=== PATIENT | male | born 1980 | race Caucasian/White ===

== ENCOUNTER 2020-09-04 13:16 | Emergency (ER) | payer OTHER, SELFPAY ==
[2020-09-04 13:26] VITALS: BP 152/99; PULSE 114; RESP 18; TEMP 36.9; O2SAT 98
--- NOTE | 2020-09-04 14:09 | ED.EAR ---
HPI - Ear Problem General Chief complaint: Ear Stated complaint: left ear pain Source: RN notes reviewed History of Present Illness HPI Narrative: The homeless patient, previously mostly healthy, presents with left ear discomfort. Patient states he cleaned his ear several days ago with Q-tip after showering at his mother noticed some blood, which recurred today. No fever, decreased hearing acuity, vertigo/dizziness, discharge. Symptoms are mild, slightly improved and only worse with deep palpation Related Data Allergies Allergy/AdvReac Type Severity Reaction Status Date / Time No Known Allergies Allergy Verified 09/04/20 13:32 Review of Systems Review of Systems: Narrative: General/Constitutional: No weight loss,fever Eyes: N0: Redness,discharge Ears/Nose/Throat: No: Epistaxis,ear discharge Respiratory: Denies: Hemoptysis Gastrointestinal: No Vomiting, Bleeding-rectal Skin: No Lumps, eruption Neurologic: No Focal Weakness,Sz Hematologic: Denies: Petechiae/Purpura Psychiatric: No: Suicida ideationl All Other Systems: Reviewed and Negative PMFSH Social History Social History Gender identity (if verbalized by the patient): Male Comments At time of signature, agree with nursing past medical, surgical, social and family history. There is no relevant family history pertinent to the presenting complaint Exam Narrative: Exam Narrative: General Appearance: Well appearing, Well nourished, No distress EYE: PERRLA EOMI Ears: External ear normal, bilateral TMs benign, left EAC abraded, right auditory canal normal Nose: Normal nose, Nares clear Mouth/Throat: Normal appearing, Normal lips Neck: Supple, No adenopathy Respiratory: Airway patent, No respiratory distress Skin: Warm, Dry Neurological: A&O x3, CN II-X intact Psychiatric: Normal mood, Normal affect Course Vital Signs Vital signs: Vital Signs Temperature 98.5 F 09/04/20 13:26 Pulse Rate 114 H 09/04/20 13:26 Respiratory Rate 18 09/04/20 13:26 Blood Pressure 152/99 H 09/04/20 13:26 Pulse Oximetry 98 09/04/20 13:26 Temperature 98.5 F 09/04/20 13:26 Pulse Rate 114 H 09/04/20 13:26 Respiratory Rate 18 09/04/20 13:26 Blood Pressure 152/99 H 09/04/20 13:26 Pulse Oximetry 98 09/04/20 13:26 Medical Decision Making Vital Signs Vital Signs: Vital Signs Temperature 98.5 F 09/04/20 13:26 Pulse Rate 114 H 09/04/20 13:26 Respiratory Rate 18 09/04/20 13:26 Blood Pressure 152/99 H 09/04/20 13:26 Pulse Oximetry 98 09/04/20 13:26 Temperature 98.5 F 09/04/20 13:26 Pulse Rate 114 H 09/04/20 13:26 Respiratory Rate 18 09/04/20 13:26 Blood Pressure 152/99 H 09/04/20 13:26 Pulse Oximetry 98 09/04/20 13:26 Discharge Plan Discharge Clinical Impression: Otalgia, left ear Abrasion of ear canal Qualifiers: Encounter type: initial encounter Laterality: left Qualified Code(s): S00.412A - Abrasion of left ear, initial encounter Patient Disposition: Home, Self-Care Condition: Stable Instructions: Ear Abrasion (ED) Prescriptions: New [id number] 3.5-10,000-1 mg/mL-unit/mL-% drops,suspension 4 drp LEFTEAR Q8H 5 Days Qty: 10 RF: 0 Follow-up/Referrals: PHYSICIAN,MACHINE SETTER [Primary Care Provider] -
== END 2020-09-04 14:16 | disposition home or self-care (01) ==
PROVIDERS: Emergency Provider Emergency Medicine
DX: S00.412A Abrasion of left ear, initial encounter (principal); X58.XXXA Exposure to other specified factors, initial encounter
CPT/HCPCS: 99213; G0463